=== PATIENT | female | born 1960 | race Caucasian/White ===

== ENCOUNTER 2017-03-30 05:27 | Day surgery (SDC) | payer OTHER, MEDICARE ==
[~2017-03-30] VITALS: Ht 167.6 cm; Wt 83.6 kg
[~2017-03-30 05:27] MED LIST: ADVAIR 250/501 DISK IH; BENTYL10 MG PO; COLACE100 MG PO; CYMBALTA20 MG PO; ELAVIL50 MG PO; LAMICTAL100 MG PO; LINZESS145 MCG PO; LUNESTA3 MG PO; MAXALT5 MG PO; MOTRIN600 MG PO; NEURONTIN600 MG PO; OMEPRAZOLE40 M1 PO; PENTASA500 MG PO; PLAQUENIL200 MG PO; POTASSIUM-9999 MG PO; VENTOLIN HFA18 GM IH; ZANAFLEX2 M1 PO
[2017-03-30 05:54] VITALS: BP 124/57
[2017-03-30] MEDS ORDERED: PERCOCET 7.51 TABLET PO (09:28)
[2017-03-30] MEDS ORDERED: IBUPROFEN800 MG PO (09:28)
[2017-03-30 11:08] VITALS: BP 121/61
[2017-03-30 11:46] VITALS: BP 129/63
== END 2017-03-30 11:50 | disposition home or self-care (01) ==
LOC: SDC 05:27
DX: N83.292 Other ovarian cyst, left side (principal); N83.291 Other ovarian cyst, right side; N73.6 Female pelvic peritoneal adhesions (postinfective); K21.9 Gastro-esophageal reflux disease without esophagitis; J44.9 Chronic obstructive pulmonary disease, unspecified; Z88.2 Allergy status to sulfonamides
CPT/HCPCS: 88305; J0131; J1100; J1170; J1885; J2250; J2405; J2765; J3010